=== PATIENT | female | born 1965 | race Asian ===

== ENCOUNTER 2019-05-19 17:31 | Emergency (ER) | payer OTHER ==
[2019-05-19 17:52] VITALS: BP 148/72; PULSE 77; TEMP 97.5; BMI 31.2
--- NOTE | 2019-05-19 17:53 | PDOC ---
Rapid Medical Evaluation Chief Complaint: Pain Time Seen by Provider: 05/19/19 17:51 Medical Evaluation: Allergies Allergy/AdvReac Type Severity Reaction Status Date / Time No Known Allergies Allergy Verified 06/10/12 23:21 05/19/19 17:51 Pt presents with L forearm pain. She states she had a blood draw yesterday and since then has developed a bruise to the L forearm Exam: bruise to the l forearm, FROM Orders: Nothing Pt to proceed to the ER for further evaluation Discharge Disposition - Diagnosis Bruise - Referrals Referrals: Namita Santana MD [Primary Care Provider] - - Patient Instructions - Post Discharge Activity
--- NOTE | 2019-05-19 18:57 | PDOC ---
History of Present Illness - General Chief Complaint: Pain Stated Complaint: BRUISE ON ARM Time Seen by Provider: 05/19/19 17:51 History Source: Patient - History of Present Illness Initial Comments: 05/19/19 19:16 Chief complaint: Bruise Patient 54-year-old female with a history of psoriasis who had blood drawn yesterday to the left arm, they had difficulty getting the blood sure and now she has a bruise. Patient feels well, no fever and they were just concerned and wanted it evaluated. GENERAL/CONSTITUTIONAL: No fever, weakness. dizziness HEAD, EYES, EARS, NOSE AND THROAT: No change in vision. No ear pain or discharge. No sore throat. CARDIOVASCULAR: No chest pain RESPIRATORY: No shortness of breath or cough GASTROINTESTINAL: No pain, nausea, vomiting, diarrhea or constipation GENITOURINARY: No dysuria MUSCULOSKELETAL: No neck or back pain SKIN: No rash,+bruise NEUROLOGIC: No headache, vertigo, loss of consciousness, or loss of sensation. GENERAL: The patient is awake, alert, and fully oriented, in no acute distress. HEAD: Normal with no signs of trauma. EYES: Pupils equal, round and reactive to light, sclera anicteric, conjunctiva clear. ENT: pharynx: no erythema, no exudate, uvula midline NECK: supple CHEST: clear, nontender, rr ABD: soft, nontender BACK: no tenderness or signs of injury EXTREMITIES: left proximal forearm with cm superficial hematoma, no collection, no swelling, no signs of infection, full range of motion, rest of extremities, normal range of motion, no edema. NEUROLOGICAL: Normal speech, normal gait. SKIN: Warm, Dry Past History - Past Medical History Allergies/Adverse Reactions: Allergies Allergy/AdvReac Type Severity Reaction Status Date / Time No Known Allergies Allergy Verified 06/10/12 23:21 Home Medications: Ambulatory Orders No Home Medications 0 dose .ROUTE UTDICT 06/10/12 Erythromycin 0.5% Eye Ointment [Erythromycin 0.5% Eye Ointment -] 1 applic OS TID #21 tube 06/11/12 COPD: No CHF: No DVT: No - Immunization History Immunization Up to Date: Yes - Suicide/Smoking/Psychosocial Hx Smoking Status: No Smoking History: Never smoked Number of Cigarettes Smoked Daily: 0 Information on smoking cessation initiated: No Hx Alcohol Use: No Drug/Substance Use Hx: No *Physical Exam - Vital Signs Last Vital Signs Temp Pulse Resp BP Pulse Ox 97.5 F L 77 16 148/72 100 05/19/19 17:49 05/19/19 17:49 05/19/19 17:49 05/19/19 17:49 05/19/19 17:49 Medical Decision Making - Medical Decision Making 05/19/19 19:18 54-year-old female, not on blood thinners with history of psoriasis who had blood draw yesterday and now has a bruise. Bruise superficial. No signs of infection, collection or any other concerns. Patient will be given supportive instructions Discussed issues, findings, results, applicable medications and treatments and follow-up. All these were understood and all questions were answered *DC/Admit/Observation/Transfer Diagnosis at time of Disposition: Bruise - Discharge Dispostion Disposition: HOME Condition at time of disposition: Stable Decision to Admit order: No - Referrals Referrals: Namita Santana MD [Primary Care Provider] - - Patient Instructions Printed Discharge Instructions: DI for Hematoma (Bruise) Additional Instructions: you can apply warm compresses this will slowly turn colors and return return to er if fever, getting hot and red follow up with your doctor - Post Discharge Activity
== END 2019-05-19 19:25 | disposition home or self-care (01) ==
LOC: JERFT 17:31
DX: S50.12XA Contusion of left forearm, initial encounter (principal); X58.XXXA Exposure to other specified factors, initial encounter; Y93.89 Activity, other specified; Y92.89 Other specified places as the place of occurrence of the external cause
CPT/HCPCS: 99281-25

== ENCOUNTER 2021-05-12 09:00 | Emergency (ER) | payer OTHER ==
[2021-05-12 09:06] VITALS: BP 123/67; PULSE 68; TEMP 97; BMI 29.9
[2021-05-12] MEDS ORDERED: NAPROXEN 500 MG TABLET PO ONE (09:35)
[2021-05-12] MEDS ORDERED: NAPROXEN 500 MG TABLET ONE (09:37)
== END 2021-05-12 11:13 | disposition home or self-care (01) ==
LOC: JER 09:00
DX: S83.92XA Sprain of unspecified site of left knee, initial encounter (principal); S93.402A Sprain of unspecified ligament of left ankle, initial encounter; X50.9XXA Other and unspecified overexertion or strenuous movements or postures, initial encounter
CPT/HCPCS: 73562-TC-LT-FY; 73610-TC-LT-FY; 99284-25

== ENCOUNTER → 2021-10-01 | Day surgery (SDC) | payer OTHER | END | disposition home or self-care (01) | LOC: JRADIR 10:11 | PROVIDERS: ATTEND Family Medicine | PROC: 0G9K3ZX Drainage of Thyroid Gland, Percutaneous Approach, Diagnostic (ICD-10-PCS; principal; 2021-10-01) | DX: E04.1 Nontoxic single thyroid nodule (principal) | CPT/HCPCS: 10005; 76942; 88173; 88305-TC ==

== ENCOUNTER 2021-11-11 04:14 | Day surgery (SDC) | payer OTHER ==
[2021-11-07 17:08] VITALS: BMI 29.0
[2021-11-11] MEDS ORDERED: oxyCODONE HCL 5 MG TABLET PO PRN ×2 (09:42)
[2021-11-11] MEDS ORDERED: ONDANSETRON 4 MG/2 ML VIAL IVPUSH PRN (09:42)
[2021-11-11] MEDS ORDERED: PROMETHAZINE HCL 25 MG/1 ML VIAL IVPUSH PRN (09:42)
[2021-11-11] MEDS ORDERED: LACTATED RINGERS SOLUTION 1,000 ML IV SCH (09:45)
[2021-11-11] MEDS ORDERED: PROPOFOL 20 ML ONE ×2 (09:59)
[2021-11-11] MEDS ORDERED: MIDAZOLAM HCL 2 MG/2 ML SINGLE DOSE VIAL ONE (09:59)
[2021-11-11] MEDS ORDERED: ACETAMINOPHEN 1000 MG/100 ML BAG IVPB PRN (11:05)
[2021-11-11] MEDS ORDERED: DEXAMETHASONE SOD PHOSPHATE 4 MG/1 ML VIAL ONE (11:27)
[2021-11-11] MEDS ORDERED: KETOROLAC TROMETHAMINE 30 MG/1 ML VIAL ONE (11:27)
[2021-11-11 12:30] VITALS: TEMP 98.2
[2021-11-11 13:16] VITALS: BP 120/74; PULSE 69
== END 2021-11-11 13:26 | disposition home or self-care (01) ==
LOC: JASU-SURG 04:14
PROVIDERS: ATTEND Obstetrics & Gynecology
PROC: 0UDB8ZX Extraction of Endometrium, Via Natural or Artificial Opening Endoscopic, Diagnostic (ICD-10-PCS; principal; 2021-11-11 10:00)
DX: N93.8 Other specified abnormal uterine and vaginal bleeding (principal)
CPT/HCPCS: 88305-TC; 94760

== ENCOUNTER → 2022-03-31 | Day surgery (SDC) | payer OTHER | END | disposition home or self-care (01) | LOC: JRADIR 09:16 | PROVIDERS: ATTEND Family Medicine | PROC: 0G9K3ZX Drainage of Thyroid Gland, Percutaneous Approach, Diagnostic (ICD-10-PCS; principal; 2022-03-31) | DX: E04.1 Nontoxic single thyroid nodule (principal) | CPT/HCPCS: 10005; 76942; 88173; 88305-TC ==

== ENCOUNTER 2023-03-17 12:43 | Emergency (ER) | payer OTHER ==
[2023-03-17 12:55] VITALS: BP 137/86; PULSE 87; RESP 18; TEMP 97.6; BMI 31.4
== END 2023-03-17 13:45 | disposition home or self-care (01) ==
LOC: JERFT 12:43
PROC: 2W3JX1Z Immobilization of Right Finger using Splint (ICD-10-PCS; principal; 2023-03-17)
DX: S62.664A Nondisplaced fracture of distal phalanx of right ring finger, initial encounter for closed fracture (principal); X50.0XXA Overexertion from strenuous movement or load, initial encounter
CPT/HCPCS: 73140-TC-RT-FY; 99283-25

== ENCOUNTER 2023-09-02 19:47 | Emergency (ER) | payer SELFPAY ==
[2023-09-02 20:00] VITALS: BP 128/83; PULSE 90; RESP 17; TEMP 97.9; BMI 30.1
[2023-09-02] MEDS ORDERED: KETOROLAC TROMETHAMINE 60 MG/2 ML VIAL IM ONE (20:08)
[2023-09-02] MEDS ORDERED: ACETAMINOPHEN 500 MG TABLET (FP) PO ONE (20:15)
[2023-09-02] MEDS ORDERED: hydrOXYzine PAMOATE 50 MG CAPSULE (FP) PO ONE (20:15)
[2023-09-02] MEDS ORDERED: KETOROLAC TROMETHAMINE 60 MG/2 ML VIAL ONE (20:29)
[2023-09-02] MEDS ORDERED: hydrOXYzine PAMOATE 25 MG CAPSULE (FP) PO ONE (20:29)
[2023-09-02] MEDS ORDERED: ACETAMINOPHEN 500 MG TABLET (FP) ONE (20:29)
== END 2023-09-02 23:09 | disposition home or self-care (01) ==
LOC: FER 19:47
PROC: 3E0233Z Introduction of Anti-inflammatory into Muscle, Percutaneous Approach (ICD-10-PCS; principal; 2023-09-02)
DX: M54.6 Pain in thoracic spine (principal); M25.561 Pain in right knee; S83.91XA Sprain of unspecified site of right knee, initial encounter; S20.229A Contusion of unspecified back wall of thorax, initial encounter
CPT/HCPCS: 71101-TC-RT-FY; 73562-TC-RT-FY; 99284-25

== ENCOUNTER 2024-02-17 20:14 | Emergency (ER) | payer OTHER ==
[2024-02-17 20:35] VITALS: BP 134/78; PULSE 84; RESP 16; TEMP 97.5; BMI 31.2
[2024-02-17] MEDS: IBUPROFEN 600 MG TABLET (FP) PO ONE (21:09)
[2024-02-17] MEDS ORDERED: IBUPROFEN 600 MG TABLET (FP) PO ONE (21:12)
== END 2024-02-17 21:48 | disposition home or self-care (01) ==
LOC: FER 20:14
DX: S92.425A Nondisplaced fracture of distal phalanx of left great toe, initial encounter for closed fracture (principal); W08.XXXA Fall from other furniture, initial encounter
CPT/HCPCS: 73660-TC-LT-FY; 99283-25